=== PATIENT | female | born 1975 | race African-American/Black ===

== ENCOUNTER 2018-02-11 21:35 | Emergency (ER) | payer SELFPAY ==
[2018-02-11] MEDS ORDERED: BENADRYL ONE (21:42)
[2018-02-11] MEDS ORDERED: PEPCID ONE (21:43)
[2018-02-11] MEDS ORDERED: BANOPHEN PO ONE (21:52)
[2018-02-11] MEDS ORDERED: PEPCID PO ONE (21:52)
--- NOTE | 2018-02-11 23:09 | Emergency Department Report ---
HPI - General Chief Complaint: Allergic Reaction Time Seen by Provider: 02/11/18 23:07 ED Past Medical Hx - Past Medical History Previous Medical History?: No - Surgical History Past Surgical History?: No - Social History Smoking Status: Never Smoker Substance Use Type: None ED Review of Systems ROS: Stated complaint: RASH Other details as noted in HPI Physical Exam - Physical Exam Vital Signs: Vital Signs 02/11/18 21:39 Temperature 97.8 F Pulse Rate 77 Respiratory 18 Rate Blood Pressure 125/75 O2 Sat by Pulse 98 Oximetry ED Course Vital Signs 02/11/18 21:39 Temperature 97.8 F Pulse Rate 77 Respiratory 18 Rate Blood Pressure 125/75 O2 Sat by Pulse 98 Oximetry Critical care attestation.: If time is entered above; I have spent that time in minutes in the direct care of this critically ill patient, excluding procedure time. ED Disposition Condition: Stable Referrals: DE WATERMAN,CLINICA [Other] - 3-5 Days
--- NOTE | 2018-02-11 23:13 | Emergency Department Report ---
ED Allergic Reaction HPI - General Chief complaint: Allergic Reaction Stated complaint: RASH Time Seen by Provider: 02/11/18 23:07 Source: patient Mode of arrival: Ambulatory Limitations: Language Barrier - History of Present Illness Initial Comments: 42-year-old female past medical history none presents with complaint of acute onset of hives while gardening this evening. Patient states she was pulling weeds and then suddenly developed hives on her arms legs chest and back. Patient states his skin was very itchy. Her family noticed and brought her to the hospital. Patient was given antihistamines in triage and states she feels significantly better. No visible angioedema no lip swelling or tongue swelling. Speaking in full sentences. No audible wheezing or stridor. pt is Frisian-speaking which I speak fluently. Daughter and has been at bedside. Patient denies any allergy history. Denies using any chemical products or new cosmetics has no new pets. Patient states that hives are significantly improved and her family members at bedside agree. MD Complaint: allergic reaction, hives -: This evening Exposure: plant (possible exposure to weeds while gardening in her backyard) Symptoms: itching Severity: mild Previous Allergy History: none - Related Data Previous Rx's Medication Instructions Recorded Last Taken Type EPINEPHrine [Epipen] 0.3 mg IJ ONCE PRN #1 auto.injct 02/11/18 Unknown Rx Famotidine [Pepcid] 20 mg PO BID PRN #20 tablet 02/11/18 Unknown Rx Hydroxyzine HCl 25 mg PO BID PRN #20 tablet 02/11/18 Unknown Rx Prednisone [predniSONE 10 mg 10 mg PO .TAPER #1 tab.ds.pk 02/11/18 Unknown Rx (6-Day Pack, 21 Tabs)] Allergies Allergy/AdvReac Type Severity Reaction Status Date / Time No Known Allergies Allergy Verified 02/11/18 21:54 ED Review of Systems ROS: Stated complaint: RASH Other details as noted in HPI Constitutional: denies: chills, fever Eyes: denies: eye pain, eye discharge, vision change ENT: denies: ear pain, throat pain Respiratory: denies: cough, shortness of breath, wheezing Cardiovascular: denies: chest pain, palpitations Endocrine: no symptoms reported Gastrointestinal: denies: abdominal pain, nausea, diarrhea Genitourinary: denies: urgency, dysuria, discharge Musculoskeletal: denies: back pain, joint swelling, arthralgia Skin: as per HPI, rash (hives), lesions, pruritus Neurological: denies: headache, weakness, paresthesias Psychiatric: denies: anxiety, depression Hematological/Lymphatic: denies: easy bleeding, easy bruising ED Past Medical Hx - Past Medical History Previous Medical History?: No - Surgical History Past Surgical History?: No - Social History Smoking Status: Never Smoker Substance Use Type: None - Medications Home Medications: Home Medications Medication Instructions Recorded Confirmed Last Taken Type EPINEPHrine [Epipen] 0.3 mg IJ ONCE PRN #1 auto.injct 02/11/18 Unknown Rx Famotidine [Pepcid] 20 mg PO BID PRN #20 tablet 02/11/18 Unknown Rx Hydroxyzine HCl 25 mg PO BID PRN #20 tablet 02/11/18 Unknown Rx Prednisone [predniSONE 10 mg 10 mg PO .TAPER #1 tab.ds.pk 02/11/18 Unknown Rx (6-Day Pack, 21 Tabs)] ED Physical Exam - General Limitations: Language Barrier General appearance: alert, in no apparent distress - Head Head exam: Present: atraumatic, normocephalic - Eye Eye exam: Present: normal appearance - ENT ENT exam: Present: normal exam, normal orophraynx (oropharynx is open and patent swelling or angioedema), mucous membranes moist - Neck Neck exam: Present: normal inspection - Respiratory Respiratory exam: Present: normal lung sounds bilaterally. Absent: respiratory distress - Cardiovascular Cardiovascular Exam: Present: regular rate, normal rhythm. Absent: systolic murmur, diastolic murmur, rubs, gallop - GI/Abdominal GI/Abdominal exam: Present: soft, normal bowel sounds - Extremities Exam Extremities exam: Present: normal inspection - Back Exam Back exam: Present: normal inspection - Neurological Exam Neurological exam: Present: alert, oriented X3 - Psychiatric Psychiatric exam: Present: normal affect, normal mood - Skin Skin exam: Present: warm, dry, intact, normal color, urticaria (resolving urticaria). Absent: rash ED Course Vital Signs 02/11/18 21:39 Temperature 97.8 F Pulse Rate 77 Respiratory 18 Rate Blood Pressure 125/75 O2 Sat by Pulse 98 Oximetry ED Medical Decision Making - Medical Decision Making A/P: Allergic reaction, hives 1-likely due to exposure to weeds this patient was gardening 2-course of prednisone, Pepcid, hydroxyzine when necessary, Claritin and EpiPen when necessary for angioedema 3-follow-up with company laundry worker/primary care 4- patient has no clinical signs of angioedema with normal vital signs we'll discharge with precautions for angioedema Critical care attestation.: If time is entered above; I have spent that time in minutes in the direct care of this critically ill patient, excluding procedure time. ED Disposition Clinical Impression: Hives Acute allergic reaction Qualifiers: Encounter type: initial encounter Qualified Code(s): T78.40XA - Allergy, unspecified, initial encounter Disposition: TO HOME OR SELFCARE Is pt being admited?: No Does the pt Need Aspirin: No Condition: Stable Instructions: Urticaria (ED) Prescriptions: EPINEPHrine [Epipen] 0.3 mg IJ ONCE PRN #1 auto.injct PRN Reason: Angioedema Famotidine [Pepcid] 20 mg PO BID PRN #20 tablet PRN Reason: Itching Hydroxyzine HCl 25 mg PO BID PRN #20 tablet PRN Reason: Itching Prednisone [predniSONE 10 mg (6-Day Pack, 21 Tabs)] 10 mg PO .TAPER #1 tab.ds.pk Referrals: DE WATERMAN,CLINICA [Other] - 3-5 Days [facility] [Provider Group] - 3-5 Days Forms: Accompanied Note Time of Disposition: 23:13
[2018-02-11 23:14] VITALS: BP 132/81
== END 2018-02-11 23:32 | disposition home or self-care (01) ==
LOC: ED 21:35
DX: L50.9 Urticaria, unspecified (principal); T78.40XA Allergy, unspecified, initial encounter
CPT/HCPCS: 96372; 99282; J1200; J2930

== ENCOUNTER 2019-03-08 07:11 | Day surgery (SDC) | payer OTHER ==
[~2019-03-08 07:11] MED LIST: ANCEF/STERILE WATER 2 GM/20 ML IV NR
--- NOTE | 2019-03-08 07:33 | Anesthesia Day of Surgery ---
Anesthesia Day of Surgery - Day of Surgery Patient Examined: Yes Patient H&P Reviewed: Yes Patient is NPO: Yes
--- NOTE | 2019-03-08 07:37 | Anesthesia Consultation ---
Anesthesia Consult and Med Hx Date of service: 03/08/19 - Airway Anesthetic Teeth Evaluation: Good ROM Head & Neck: Adequate Mental/Hyoid Distance: Adequate Mallampati Class: Class II Intubation Access Assessment: Good - Pre-Operative Health Status ASA Pre-Surgery Classification: ASA1 Proposed Anesthetic Plan: General, MAC - Pulmonary Hx Smoking: No Hx Sleep Apnea: No (LUKAS PRE SCREEN NEGATIVE) - Cardiovascular System Hx Hypertension: No - Hematic Hx Anemia: Yes (WITH PREG ONLY) - Other Systems Hx Cancer: No
[2019-03-08] MEDS ORDERED: VERSED IV NR (08:00)
[2019-03-08] MEDS ORDERED: LACTATED RINGERS 1,000 ML IV SCH (08:00)
[2019-03-08] MEDS ORDERED: MARCAINE-EPI 0.5%-1:200,000 INFILTRATI ONE ×2 (09:20→10:11)
[2019-03-08] MEDS ORDERED: DECADRON ONE (09:23)
[2019-03-08] MEDS ORDERED: TORADOL ONE (09:23)
[2019-03-08] MEDS ORDERED: ZEMURON IV ONE (09:23)
[2019-03-08] MEDS ORDERED: ROBINUL ONE ×2 (09:23→09:25)
[2019-03-08] MEDS ORDERED: BLOXIVERZ ONE (09:23)
[2019-03-08] MEDS ORDERED: XYLOCAINE MPF 2% ONE ×2 (09:23→10:32)
[2019-03-08] MEDS ORDERED: ZOFRAN ONE (09:23)
[2019-03-08] MEDS ORDERED: DIPRIVAN 10 MG/ML IV ONE (09:23)
[2019-03-08] MEDS ORDERED: SUBLIMAZE ONE (09:25)
[2019-03-08] MEDS ORDERED: NACL 0.9% IR ONE (10:11)
--- NOTE | 2019-03-08 10:24 | Discharge Summary ---
Short Stay Discharge Plan Activity: other (observe x 2 hrs then december d/c if stable. cl liq, advance to reg as toni. remove dressings and pull out packing Monday while in shower. clean incision with soap and water cover with gauze) Diet: other Wound: per your surgeon's advice Additional Instructions: aleve I po q 6-8 hrs prn for breakthrough pain Follow up with: LORIE LYN MD [Staff Physician] - 03/11/19
--- NOTE | 2019-03-08 12:19 | Post Anesthesia Evaluation ---
- Post Anesthesia Evaluation Patient Participated: Yes Airway Patent: Yes Stable Respiratory Function: Yes Nausea/Vomiting: No Temp > 96.8F: Yes Pain Manageable: Yes Adequeate Hydration: Yes Anesthesia Complications: No
[2019-03-08 15:04] VITALS: BP 120/68
--- NOTE | 2019-03-08 16:18 | Operative Report ---
PREOPERATIVE DIAGNOSIS: Large scalp mass. POSTOPERATIVE DIAGNOSIS: Probable sebaceous cyst, pending final pathology. PROCEDURE: Excision and packing of aforementioned mass. SURGEON: Cornelius Mosley MD ANESTHESIA: General. ESTIMATED BLOOD LOSS: Minimal. DRAINS: No drains. COMPLICATIONS: No complications. DESCRIPTION OF PROCEDURE: The patient was taken to the operating room, prepped and draped in usual sterile fashion. The palpable subcutaneous scalp mass had been outlined with a marking pencil. A 0.5% Marcaine with epinephrine was infiltrated over the area to be incised. An incision was made over the dome of the mass. Double skin hooks and subsequently Yu retractors were used to retract the skin and subcutaneous. Needle tip electrocautery as well as blunt and sharp dissection were used to dissect the mass including capsule in its entirety. The mass extended down to near the bone. Sebum was noted during the dissection. Aerobic and anaerobic cultures were taken. The entire mass including capsule was removed en bloc. The area was then irrigated copiously and dried. Checked for hemostasis and noted to be dry. The skin and subcutaneous were closed with interrupted 4-0 Prolene in mattress fashion. The center core of the wound was packed with quarter inch iodoform gauze. Fluffs and a pressure dressing were applied including a ____ headgear. The patient tolerated the procedure well and left OR in stable condition. JOB# [id number] BRITTNI/GAURI
== END 2019-03-08 07:12 | disposition home or self-care (01) ==
LOC: OR 07:11
PROVIDERS: ATTEND Surgery
DX: L72.0 Epidermal cyst (principal); Z79.899 Other long term (current) drug therapy; Z98.890 Other specified postprocedural states; Z87.440 Personal history of urinary (tract) infections; Z98.891 History of uterine scar from previous surgery; Z86.2 Personal history of diseases of the blood and blood-forming organs and certain disorders involving the immune mechanism
CPT/HCPCS: 11424; 81025; 87075; 87116; 88304; J0690; J1100; J1885; J2250; J2405; J2704; J2710; J3010; J7120; 88307